=== PATIENT | female | born 2000 | race Caucasian/White ===

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

== ENCOUNTER → 2019-01-27 | Outpatient (CLI) | payer OTHER ==
--- NOTE | 2019-01-31 08:59 | SLEEPCENT ---
DATE OF STUDY: 01/27/2019 ORDERED BY: Melquiades Rivera Nocturnal polysomnography was performed for evaluation of sleep physiology in this patient with a history of excessive somnolence and nonrestorative sleep. 8 hours and 1 minute of data were reviewed. There were 359.5 minutes of sleep identified. Sleep latency was prolonged at 38 minutes. Rapid eye movement (REM) latency was normal at 67 minutes. Sleep architecture was fair with some fragmentation. There are 3 REM cycles noted. Overall sleep efficiency was 75.8%. The electrocardiogram showed a sinus rhythm with an average heart rate of 80 beats per minute. Rate ranged 65-115. Electroencephalogram (EEG) showed fairly normal waveforms for awake and sleep. There were no focal events identified. There were only 7 respiratory events identified of 10 seconds in duration or greater for an apnea-hypopnea index of 1.7. Snoring was noted over the course of the study. Respiratory related arousals occurred 0.7 times per hour. There were no oxygen desaturations. There was some limb activity noted, but no trains of events. Limb movement arousal index was 5.2. IMPRESSION: Normal nocturnal polysomnography with snoring.
== END ==
LOC: M SLEEP 19:31
PROVIDERS: ATTEND Physician Assistant
DX: R40.0 Somnolence (principal)

== ENCOUNTER → 2019-02-04 | Outpatient (CLI) | payer OTHER ==
[~2019-02-04] MED LIST changes: +BENZ200C70 PO; +FLUT22IN; +METHACHOLINE KIT (J7674) INH ONE; -OMEP40CA2 PO; +OMEP40CA97 PO; +PRED20TA PO
--- NOTE | 2019-02-04 14:11 | PFTRPT ---
Height: 67.00 Inches Weight: 335.00 Lbs BSA: 2.52 Diagnosis: R06 DATE OF PROCEDURE: 02/04/2019 ORDERED BY: Chema Rivera PA-C INTERPRETATION: Study of excellent technical quality. Under protocol, methacholine was administered. At a dose of 2.5 mg or 13.875 CDUs, a 25% decline in the FEV1 was noted. PC of 0.75 is significant. Flow rates did return to baseline post bronchodilator administration. IMPRESSION: Positive methacholine challenge study. MTDD
== END ==
LOC: M CARPUL 13:24
PROVIDERS: ATTEND Physician Assistant
DX: R06.00 Dyspnea, unspecified (principal)

== ENCOUNTER 2019-03-19 12:14 | Emergency (ER) | payer OTHER ==
[~2019-03-19] VITALS: Ht 170.2 cm; Wt 153.8 kg
[~2019-03-19 12:14] MED LIST changes: -BENZ200C70 PO; -FLUT22IN; -METHACHOLINE KIT (J7674) INH ONE; -PRED20TA PO
[2019-03-19] MEDS ORDERED: FLUT22IN (12:23)
[2019-03-19] MEDS ORDERED: ALBUTEROL SULFATE 2.5 MG/0.5 ML INH NEB SOLN INH ONE (12:45)
[2019-03-19] MEDS ORDERED: IPRATROPIUM 0.5MG/ALBUTEROL 2.5MG INH SOL UD 3ML (DUONEB)(J7620) NEB ONE (12:45)
[2019-03-19] MEDS ORDERED: ALBUTEROL SULFATE 2.5 MG/0.5 ML INH NEB SOLN NEB ONE (13:00)
[2019-03-19] MEDS ORDERED: predniSONE 20 MG TAB PO ONE (13:00)
[2019-03-19] MEDS ORDERED: BENZONATATE 100 MG CAP PO ONE (13:30)
[2019-03-19] MEDS ORDERED: BENZ200C70 PO ×2 (14:32→15:15)
[2019-03-19] MEDS ORDERED: PRED20TA PO ×2 (14:32→15:15)
[2019-03-19 14:34] VITALS: BP 124/78
== END 2019-03-19 15:19 | disposition home or self-care (01) ==
LOC: M ED 12:14
DX: J45.901 Unspecified asthma with (acute) exacerbation (principal)

== ENCOUNTER → 2019-03-31 | Outpatient (CLI) | payer OTHER ==
[~2019-03-31] MED LIST changes: +BENZ200C70 PO; +FLUT22IN; +PRED20TA PO
--- NOTE | 2019-03-31 15:16 | REP ---
Two-view chest: 03/31/2019. Indication: Cough. Comparison: 11/13/2018. Findings: The lungs are clear. There is no pleural effusion or pneumothorax. The cardiac silhouette is not enlarged. Impression: No acute cardiopulmonary process. Electronically Signed by John Guerrero DO 03/31/2019 02:29 P
== END ==
LOC: M LRY 14:02
PROVIDERS: ATTEND Nurse Practitioner Family
DX: R05 Cough (principal)